=== PATIENT | male | born 1970 | race Hispanic/Latino ===

== ENCOUNTER 2023-10-12 16:39 | Inpatient (IN) | payer SELFPAY ==
[2023-10-12 19:46] VITALS: BMI 41.8
[2023-10-12] MEDS ORDERED: Bisacodyl 5 MG TAB PO PRN (19:54)
[2023-10-12] MEDS ORDERED: Ondansetron ODT 4 MG TAB PO PRN (19:54)
[2023-10-12] MEDS ORDERED: hydrALAZINE 20 MG/ML VIAL SLOW IVP PRN (21:40)
[2023-10-12] MEDS ORDERED: Furosemide 100 MG in Sodium Chloride 0.9% 90 ML IVPB SCH (21:45)
[2023-10-12] MEDS: Albumin 25% 25 GM (100 mL) BOT IVPB SCH (21:59)
[2023-10-12] MEDS: Thiamine HCl 200 MG/2 ML VIAL SLOW IVP SCH (21:59)
[2023-10-12] MEDS: cefTRIAXone\\ROCEPHIN 1 GM in Sodium Chloride 0.9% 100 ML IVPB SCH (21:59)
[2023-10-12 22:15] LABS: Iron 109 ug/dL (65-175); Iron Binding Capacity, Total 106 mcg/dL (261-462); Magnesium 1.9 mg/dL (1.6-2.6)
[2023-10-12 22:27] LABS: Phosphorus 2.9 mg/dL (2.3-4.7)
[2023-10-12 22:35] LABS: Ferritin 886.06 ng/mL (22-322)
[2023-10-12 23:16] LABS: HBCM Index 0.09 S/CO (0-0.79); HBsAg Index 0.23 S/CO (0-0.99); Hep A IgM AB NONREACTIVE (NonReactive); Hep A IgM S/CO 0.21 S/CO (0-0.79); Hep B Surf Ag NONREACTIVE S/CO (NonReactive); Hep C IgG Ab NONREACTIVE S/CO (NonReactive); Hep C Index 0.14 S/CO (0-0.79); Hepatitis B Core IgM Abs NONREACTIVE S/CO (NonReactive)
[2023-10-13 00:36] LABS: Hemoglobin A1c 4.6 % (4.0-6.0)
[2023-10-13] MEDS: Furosemide 100 MG, Admixture Fee 1 EACH in Sodium Chloride 0.9% 90 ML IVPB SCH (05:08)
[2023-10-13 06:04] LABS: #Basophils 0.06 10x3/uL (0.0-0.2); %Basophils 0.4 % (0.0-1.0); %Eosinophils 6.1 % (0.0-10.0); %Lymphocytes 9.1 % (21.0-51.0); %Monocytes 9.5 % (0.0-10.0); %Neutrophils 72.9 % (42.0-75.0); Hematocrit 28.3 % (42.0-52.0); Hemoglobin 9.8 g/dL (14.0-18.0); Mean Corpuscular HGB CONC 34.6 g/dL (32.0-36.0); Mean Corpuscular Hemoglobin 34.9 pg (27.0-31.0); Mean Corpuscular Volume 100.7 fL (78.0-98.0); Mean Platelet Volume 9.4 fL (7.4-10.4); Platelet Count 149 10x3/uL (130-400); RBC Distribution Width 13.8 % (11.5-14.5); Red Blood Cell (RBC) Count 2.81 mill/uL (4.70-6.10)
[2023-10-13 06:19] LABS: ALT (SGPT) 37 U/L (8-55); AST (SGOT) 66 U/L (5-34); Albumin 2.4 g/dL (3.5-5.0); Alkaline Phosphatase 245 U/L (40-110); Anion Gap 13 mmol/L (10-20); BUN (Urea Nitrogen) 11 mg/dL (8.4-25.7); Calc. Creatinine Clearance 104 mL/min (70-130); Calcium 8.2 mg/dL (7.8-10.44); Carbon Dioxide 19 mmol/L (22-29); Chloride 104 mmol/L (98-107); Estimated GFR 67; Globulin 4.6 g/dL (2.4-3.5); Glucose 104 mg/dL (70-105); Potassium 4.2 mmol/L (3.5-5.1); Sodium 132 mmol/L (136-145)
[2023-10-13] MEDS: Famotidine 20 MG TAB PO SCH (08:53)
[2023-10-13] MEDS: Folic Acid 1 MG TAB PO SCH (08:54)
[2023-10-13] MEDS: Multivit, Therapeutic 1 TAB PO SCH (08:54)
[2023-10-13] MEDS ORDERED: Heparin 5,000 UNITS/ML VIAL SC SCH (09:00)
[2023-10-13] MEDS ORDERED: Ondansetron ODT 4 MG TAB PO PRN (09:34)
[2023-10-13 11:19] LABS: Syphilis Antibody Nonreactive (Nonreactive); Syphilis Antibody Index 0.14 S/CO (<1.00 Non-Reactive)
[2023-10-13 15:47] LABS: RBC Count-Automated (BF) 0 /cu.mm; WBC/Nucleated-Auto (BF) 280 /cu.mm
[2023-10-13 16:05] LABS: BF Color Yellow; Body Fluid Source Ascites Body Fluid; Clarity Clear (Clear); Tube # EDTA
[2023-10-13 16:19] LABS: BF Segmented Neutrophils 40 %; Cell Count Non Hematic 50 %; Lymphocytes 10 %
[2023-10-13] MEDS: cefTRIAXone\\ROCEPHIN 2 GM in Sodium Chloride 0.9% 100 ML IVPB SCH (21:35)
[2023-10-14 06:52] LABS: #Basophils 0.04 10x3/uL (0.0-0.2); %Basophils 0.3 % (0.0-1.0); %Eosinophils 5.8 % (0.0-10.0); %Lymphocytes 11.6 % (21.0-51.0); %Monocytes 10.1 % (0.0-10.0); %Neutrophils 70.5 % (42.0-75.0); Hematocrit 28.1 % (42.0-52.0); Hemoglobin 9.7 g/dL (14.0-18.0); Mean Corpuscular HGB CONC 34.5 g/dL (32.0-36.0); Mean Corpuscular Hemoglobin 35.4 pg (27.0-31.0); Mean Corpuscular Volume 102.6 fL (78.0-98.0); Mean Platelet Volume 9.1 fL (7.4-10.4); Platelet Count 163 10x3/uL (130-400); RBC Distribution Width 13.6 % (11.5-14.5); Red Blood Cell (RBC) Count 2.74 mill/uL (4.70-6.10)
[2023-10-14 06:54] LABS: INR-International Normal Ratio 1.8; Prothrombin Time 20.5 sec (12.0-14.7)
[2023-10-14 07:20] LABS: ALT (SGPT) 37 U/L (8-55); AST (SGOT) 66 U/L (5-34); Albumin 2.4 g/dL (3.5-5.0); Alkaline Phosphatase 199 U/L (40-110); Anion Gap 15 mmol/L (10-20); BUN (Urea Nitrogen) 14 mg/dL (8.4-25.7); Calc. Creatinine Clearance 79 mL/min (70-130); Calcium 8.4 mg/dL (7.8-10.44); Carbon Dioxide 24 mmol/L (22-29); Chloride 98 mmol/L (98-107); Estimated GFR 48; Globulin 4.7 g/dL (2.4-3.5); Glucose 94 mg/dL (70-105); Potassium 3.7 mmol/L (3.5-5.1); Protein, Total 7.1 g/dL (6.0-8.3); Sodium 133 mmol/L (136-145)
[2023-10-14 07:31] LABS: HBSAB Concentration Less than 8.00 mIU/mL; Hep B Surf AB NONREACTIVE (NonReactive)
[2023-10-14] MEDS ORDERED: Midazolam HCl 2 mg/2 ml Vial ONE (09:27)
[2023-10-14] MEDS ORDERED: PROPOFOL 20 ML ONE (09:27)
[2023-10-14] MEDS ORDERED: Lidocaine 1% PF 5 ML VIAL ONE (09:30)
[2023-10-14] MEDS: Nadolol 40 MG TAB PO SCH (11:52)
[2023-10-14] MEDS ORDERED: Lactulose 20 GM (30 mL) UDCUP PO PRN (13:14)
[2023-10-14] MEDS: Spironolactone 25 MG TAB PO SCH (14:12)
[2023-10-15 07:04] LABS: ALT (SGPT) 27 U/L (8-55); AST (SGOT) 55 U/L (5-34); Alkaline Phosphatase 171 U/L (40-110); Anion Gap 10 mmol/L (10-20); BUN (Urea Nitrogen) 15 mg/dL (8.4-25.7); Bilirubin, Total 5.7 mg/dL (0.2-1.2); Calc. Creatinine Clearance 85 mL/min (70-130); Calcium 7.9 mg/dL (7.8-10.44); Carbon Dioxide 27 mmol/L (22-29); Chloride 98 mmol/L (98-107); Estimated GFR 59; Globulin 3.8 g/dL (2.4-3.5); Glucose 95 mg/dL (70-105); Protein, Total 5.8 g/dL (6.0-8.3); Sodium 131 mmol/L (136-145)
[2023-10-15 07:35] LABS: #Basophils 0.05 10x3/uL (0.0-0.2); %Basophils 0.5 % (0.0-1.0); %Lymphocytes 12.2 % (21.0-51.0); %Monocytes 11.8 % (0.0-10.0); %Neutrophils 67.2 % (42.0-75.0); Hematocrit 23.6 % (42.0-52.0); Hemoglobin 8.3 g/dL (14.0-18.0); Mean Corpuscular HGB CONC 35.2 g/dL (32.0-36.0); Mean Corpuscular Hemoglobin 35.3 pg (27.0-31.0); Mean Corpuscular Volume 100.4 fL (78.0-98.0); Mean Platelet Volume 9.1 fL (7.4-10.4); Platelet Count 141 10x3/uL (130-400); RBC Distribution Width 13.5 % (11.5-14.5); Red Blood Cell (RBC) Count 2.35 mill/uL (4.70-6.10)
[2023-10-15 07:43] VITALS: BP 121/70; TEMP 97.9
[2023-10-15] MEDS: Spironolactone 25 MG TAB PO SCH (07:43)
[2023-10-15] MEDS: Furosemide 20 MG TAB PO SCH (08:30)
[2023-10-15] MEDS: Nadolol 40 MG TAB PO SCH (08:30)
[2023-10-15 15:18] LABS: ANA Symphony (Qualitative) Negative (Negative); ANA Symphony (Quantitative) 0.6 Ratio (< 0.7 Negative); EliA Vaculitis New Method **** NEW METHOD ****; Mitochondrial Ab 1.8 U/mL (<4 Negative); dsDNA IgG Antibody 4.4 IU/mL (<10 Negative)
[2023-10-15] MEDS ORDERED: Thiamine 100 MG TAB PO SCH (22:00)
[2023-10-16 07:19] LABS: Alpha-1-Antitrypsin 176 mg/dL (101-187)
[2023-10-17 20:08] LABS: Smooth Muscle Total ABS 16 Units (0-19)
== END 2023-10-15 14:25 | disposition home or self-care (01) | DRG 432 ==
LOC: T4-B 19:22
PROVIDERS: ADMIT Emergency Medicine; ATTEND Emergency Medicine
PROC: 30233J1 Transfusion of Nonautologous Serum Albumin into Peripheral Vein, Percutaneous Approach (ICD-10-PCS; 2023-10-12)
PROC: 0W9G3ZZ Drainage of Peritoneal Cavity, Percutaneous Approach (ICD-10-PCS; principal; 2023-10-13)
PROC: 0DJ08ZZ Inspection of Upper Intestinal Tract, Via Natural or Artificial Opening Endoscopic (ICD-10-PCS; 2023-10-14)
DX: K70.31 Alcoholic cirrhosis of liver with ascites (principal); K72.00 Acute and subacute hepatic failure without coma; E87.1 Hypo-osmolality and hyponatremia; K76.6 Portal hypertension; N17.9 Acute kidney failure, unspecified; I85.10 Secondary esophageal varices without bleeding; D53.9 Nutritional anemia, unspecified; I10 Essential (primary) hypertension; K31.89 Other diseases of stomach and duodenum; Z79.899 Other long term (current) drug therapy
CPT/HCPCS: 36415; 76705; 80053; 80074; 81256; 82042; 82103; 82105; 82140; 82274; 82390; 82728; 83036; 83516; 83540; 83550; 83615; 83735; 83880; 84100; 84157; 84443; 85025; 85060; 85610; 86015; 86038; 86225; 86706; 86708; 86780; 87070; 87205; 89051; J0696; J1940; J2250; J2704; J3411; P9047